=== PATIENT | female | born 2000 | race Caucasian/White ===

== ENCOUNTER 2021-06-25 11:03 | Emergency (ER) | payer BC, SELFPAY ==
[2021-06-25 11:14] VITALS: BP 108/77; PULSE 82; RESP 16; TEMP 36.6; O2SAT 100
--- NOTE | 2021-06-25 11:26 | ED.GENADULT ---
HPI - General Adult General Chief complaint: Upper Respiratory Infection Stated complaint: sore throat/sinuses/headache Time Seen by Provider: 06/25/21 11:26 Source: patient and RN notes reviewed Mode of arrival: ambulatory Limitations: no limitations History of Present Illness HPI narrative: 21-year-old female presents with complaints of upper respiratory infection, some facial congestion, facial pressure, and intermittent headache (not the worst of her life) for the past 7 days. Jody reports increasing URI symptoms for the past 3-4 days with ear pressure and sore throat. Cold and flu last taken on 06/24/21 at bedtime and Ibuprofen last taken 2 days ago without relief. ?No facial swelling.? Cough without chest congestion. Nasal congestion and rhinorrhea. ?Sore throat. ?Pain is bilateral. ?Hurts to swallow. ?No high fevers, drooling, neck or throat swelling. ?No voice change. ?No nausea, vomiting, or abdominal pain. ?Tolerating liquids well. ?Denies chills, dyspnea, difficulty swallowing, jaw pain, dental pain, foreign body sensation, and rash. ?No chest pain or shortness of breath. LMP 1.5 weeks ago. Remains active. The patient reports she has not been diagnosed with COVID-19. The patient reports she received 2 Moderna COVID-19 vaccines. The patient reports she is not waiting for the results of a COVID-19 lab test. The patient reports she does not have weakness, fatigue, or myalgia. The patient reports she does not have a worsening cough or shortness of breath. The patient reports she does not have any loss of taste or smell and diarrhea. Denies recent traveling. Denies concerns for COVID-19 or exposures. At this time, the patient is not suspected of having COVID-19. ? ? Some parts of this dictation were generated by voice recognition software and may contain typographical and/or grammatical inaccuracies. Related Data Home Medications Medication Instructions Recorded Confirmed amitriptyline 25 mg PO DIRECTED 06/25/21 06/25/21 amitriptyline 50 mg PO DIRECTED 06/25/21 06/25/21 bupropion HCl 150 mg PO DAILY 06/25/21 06/25/21 fremanezumab-vfrm [Ajovy mg SUBCUT 06/25/21 Autoinjector] pantoprazole 40 mg PO DAILY 06/25/21 06/25/21 polyethylene glycol 3350 17 g PO DIRECTED 06/25/21 06/25/21 propranolol 60 mg PO DAILY 06/25/21 06/25/21 Allergies Allergy/AdvReac Type Severity Reaction Status Date / Time No Known Allergies Allergy Verified 06/25/21 11:08 Review of Systems Review of Systems: CONSTITUTIONAL: Denies fever, chills, sweats. EYES: Denies visual changes, redness, discharge. ENT: Complains of rhinorrhea, congestion, facial congestion and pressure, sore throat, ear pressure. CARDIOVASCULAR: Denies chest pain, palpitations, edema. RESPIRATORY: Denies dyspnea, wheezing. Complaints of cough. GASTROINTESTINAL: Denies abdominal pain, nausea, vomiting, diarrhea. SKIN: Denies rash or itching. MUSCULOSKELETAL: Denies acute back pain, joint pain, or myalgia. NEUROLOGIC: Denies numbness or focal weakness. Complains of intermittent GUERRERO. PSYCHIATRIC: Denies anxiety or depression. All other systems reviewed & are unremarkable except as noted in HPI and below. PMFSH Past Medical History Medical History Allergies Depression Hx of migraines Vapes nicotine containing substance Surgical History Surgical History (Updated 06/25/21 @ 12:01 by JAZ Medrano) History of foot surgery RT foot-2016 and LT foot-2014 History of surgery on upper extremity RT elbow Family History Family History (Updated 06/25/21 @ 12:02 by JAZ Medrano) Father Hypertension Mother Alive and well Social History Social History (Updated 06/25/21 @ 12:03 by JAZ Medrano) Smoking status: Current every day smoker Tobacco type: e-cigarettes/vaping Second hand tobacco smoke exposure: No Additional smoking assessment comments: Vaping for 1.5 years Substance use: current Substance
== END 2021-06-25 11:52 | disposition home or self-care (01) ==
PROVIDERS: Emergency Provider Nurse Practitioner Family; PCP Nurse Practitioner Family
DX: J01.90 Acute sinusitis, unspecified (principal); F17.200 Nicotine dependence, unspecified, uncomplicated; F32.9 Major depressive disorder, single episode, unspecified
CPT/HCPCS: 99213; G0463

== ENCOUNTER 2024-06-30 13:58 | Outpatient (CLI) | payer BC, SELFPAY ==
--- NOTE | ~2024-06-30 | US_ITS ---
US breast RT limited 06/30/2024 14:12 Indication: Palpable right breast mass for 2 weeks Procedure: High-resolution Limited ultrasound of the right breast Comparison: No prior studies for comparison. Findings: In the area of palpable concern at 2:00, 6 cm from the nipple there is an irregular shaped hypoechoic mass measuring 1.5 x 1.3 x 1.6 cm. No posterior features or internal vascularity. Impression: 1: Probable benign 1.6 cm right breast mass at 2:00, 6 cm from the nipple. BI-RADS CATEGORY 3-PROBABLY BENIGN FINDING RECOMMENDATION: 6 month follow-up Limited right breast ultrasound recommended. Reviewed, dictated and finalized at location B. Impression: 1: Probable benign 1.6 cm right breast mass at 2:00, 6 cm from the nipple. BI-RADS CATEGORY 3-PROBABLY BENIGN FINDING RECOMMENDATION: 6 month follow-up Limited right breast ultrasound recommended.
== END 2024-06-30 13:59 ==
LOC: MICIMG 14:01
PROVIDERS: PCP Nurse Practitioner Family; Visit Provider Nurse Practitioner
DX: N63.10 Unspecified lump in the right breast, unspecified quadrant (principal); R92.8 Other abnormal and inconclusive findings on diagnostic imaging of breast
CPT/HCPCS: 76642